=== PATIENT | male | born 1965 | race African-American/Black ===

== ENCOUNTER 2020-03-15 23:20 | Emergency (ER) | payer MEDICAID, OTHER ==
[~2020-03-15] VITALS: Ht 172.7 cm; Wt 51.7 kg
[2020-03-16 00:42] LABS: HEMATOCRIT. 35.1 % (42.0-52.0); MEAN CORPUSCULAR HEMOGLOBIN 34.2 pg (28.0-32.0); MEAN CORPUSCULAR VOLUME 99.8 fL (80.0-94.0); MEAN PLATELET VOLUME 6.9 fl (7.4-10.4); PLATELET 276 x1000/uL (130-400); RED BLOOD CELL COUNT 3.51 mill/uL (4.7-6.1); RED CELL DISTRIBUTION WIDTH 14.1 % (11.6-14.6)
[2020-03-16 00:50] LABS: CHLORIDE 102 mEq/L (98-107)
[2020-03-16 00:51] LABS: PROTHROMBIN TIME 10.3 sec (9.6-11.0)
[2020-03-16 03:00] VITALS: BP 124/83
[2020-03-16 08:25] LABS: ATYPICAL LYMPHOCYTES 2; PLATELET ESTIMATE NORMAL
== END 2020-03-16 03:00 | disposition home or self-care (01) ==
LOC: ER 23:20
DX: R19.5 Other fecal abnormalities (principal); Z86.73 Personal history of transient ischemic attack (TIA), and cerebral infarction without residual deficits
CPT/HCPCS: 36415; 80053; 82270; 85025; 99283